=== PATIENT | female | born 1965 | race African-American/Black ===

== ENCOUNTER 2016-11-25 17:03 | Emergency (ER) ==
[2016-11-25] MEDS ORDERED: TORADOL ONE (18:01)
[2016-11-25] MEDS ORDERED: ZOFRAN ODT ONE (18:01)
[2016-11-25] MEDS ORDERED: ZOFRAN ODT PO ONE (18:04)
[2016-11-25] MEDS ORDERED: TORADOL IM ONE (18:04)
[2016-11-25 18:11] LABS: URINE SOURCE CLEAN CATCH
[2016-11-25 18:27] LABS: COLOR YELLOW; URINE CAST NONE SEEN /LPF; URINE CRYSTAL NONE SEEN /HPF; URINE EPITHELIAL CELLS >10 /HPF (<10); URINE RBC TNTC /HPF (<10); URINE WBC TNTC /HPF (<10)
[2016-11-25 18:28] LABS: BILIRUBIN URINE NEGATIVE (NEGATIVE); CLARITY VERY CLOUDY (CLEAR); GLUCOSE URINE NEGATIVE (NEGATIVE); URINE CULTURE PL NEEDED? YES
--- NOTE | 2016-11-25 18:43 | PROVIDER DOCUMENTATION ---
HPI-Female /OB/Breast - General Chief Complaint: Flank Pain Stated Complaint: UTI SX Time Seen by Provider: 11/25/16 18:36 Source: reports: patient Allergies/Adverse Reactions: Patient Allergies Allergy/AdvReac Type Severity Reaction Status Date / Time No Known Allergies Allergy Verified 05/29/15 00:18 Home Medications: Home Medication List Medication Instructions Recorded Confirmed Last Taken Type Metformin [Glucophage] 500 mg PO WBREAKFAST 10/15/14 05/29/15 05/28/15 08:00 History Oxycodone HCl/Acetaminophen 1 each PO Q4-6H PRN PRN 10/15/14 05/29/15 05/28/15 20:00 History [Endocet 10-325 mg Tablet] Oxycodone E.r. [Oxycontin] 30 mg PO TID 01/21/15 05/29/15 Unknown History Ondansetron [Zofran Odt] 8 mg PO Q8H PRN #20 tab.rapdis 01/22/15 05/29/15 Unknown Rx Ketorolac [Toradol] 10 mg PO Q6H #20 tablet 05/29/15 Unknown Rx Penicillin V Potassium [Pen Vk] 500 mg PO Q6HR #28 tablet 05/29/15 Unknown Rx Acetaminophen with Codeine 1 each PO Q6H PRN PRN #14 tablet 11/25/16 Unknown Rx [Tylenol with Codeine #3 Tablet] Ciprofloxacin HCl [Cipro] 500 mg PO BID #14 tablet 11/25/16 Unknown Rx - History of Present Illness-Female /OB Nature of Presenting Problem: 51 Y/O F presents to ED with Female . Pt c/o of on onset of urgency that began today, states whenever she uses the bathroom theres a pain that goes into her hands and feet. States that she's been nauseous, with flank pain, and a fever that started today. States she was just sneezing yesterday. States she can 't stop using the bathroom and has to go over few seconds. Does patient report she is ?: No Location of complaint: reports: generalized flank Radiation: reports: none Quality of Pain: reports: aching Severity in ED: reports: severe Onset/Duration: reports: this afternoon Timing: reports: still present Context/Activities at Onset: reports: none Vaginal Symptoms: reports: no symptoms Vaginal Bleeding Amount: None Urinary Symptoms: reports: frequency, urgency, low back pain Related Symptoms: reports: no symptoms Leakage of Fluid: none Associated Symptoms: reports: back/neck pain, fever/chills, muscle aches, nausea . denies: vomiting Similar Symptoms Previously?: No Recently seen or treated by another doctor?: No Review of Systems - Adult - REVIEW OF SYSTEMS - ADULT Constitutional: reports: fever. denies: chills Eyes: reports: no symptoms reported Ears, Nose, Mouth & Throat: reports: no symptoms reported Cardiovascular: reports: no symptoms reported Respiratory: reports: no symptoms reported Gastrointestinal: reports: abdominal pain Genitourinary: reports: frequency, flank pain, urgency Musculoskeletal: reports: no symptoms reported Integumentary: reports: no symptoms reported Neurological: reports: no symptoms reported Psychiatric: reports: no symptoms reported Endocrine: reports: no symptoms reported Hematologic/Lymphatic: reports: no symptoms reported Allergic/Immunologic: reports: no symptoms reported All Other Systems: Reviewed and Negative Past History - Adult - PAST MEDICAL HISTORY-ADULT Review of Records: reports: Old Records Reviewed, Nursing Assessment Review, Medications Reviewed, Social history reviewed & non-contributory. Major Childhood Illnesses: reports: denies history Cardiovascular: reports: hyperlipidemia Musculoskeletal: reports: chronic pain, neck/back injury Neurological: reports: headaches/migraines Endocrine/Immune: reports: Diabetes - PRIOR SURGERIES/PROCEDURES Surgical/Procedure History: reports: cholecystectomy, hysterectomy, orthopedic ( extremity), back/neck - IMMUNIZATION STATUS Childhood Immunizations: See Nurse Assessment Flu Vaccine: See Nurse Assessment - FAMILY HISTORY Family History: reviewed, not pertinent - SOCIAL HISTORY Smoking: cigarettes, less than 1 pack/day Substance Use: none/never Alcohol Use Frequency: never Living Situation: family Physical Exam-General - CONSTITUTIONAL General Appearance: alert, mild distress. negative: appears well - EYES Eyes: PERRL/EOMI, pink conjunctivae, fundi clear, no AV nicking - HEAD, EARS, NOSE, MOUTH & THROAT HENMT: normocephalic/atraumatic, moist mucous membranes, normal ENT inspection, TMs normal, pharynx normal - NECK Neck: non-tender, full range of motion, supple, normal inspection - RESPIRATORY Respiratory: chest non-tender, lungs clear, normal breath sounds - CARDIOVASCULAR Cardiovascular: normal peripheral pulses, regular rate, rhythm - GASTROINTESTINAL (ABDOMEN) Abdominal Exam: normal bowel sounds, non tender, soft - LYMPHATIC Lymphatic: no adenopathy - MUSCULOSKELETAL Back Exam: normal inspection, no CVA tenderness, no vertebral tenderness Extremity: normal range of motion, normal gait, tenderness - SKIN Integumentary: normal color, normal turgor, warm/dry - NEUROLOGIC 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 - PSYCHIATRIC Psych/Mental Status: normal mood/affect, normal thought content, normal thought process, oriented x 3 Progress - PLAN OF CARE/RESULTS Progress/Plan/Lab Results: Laboratory Tests 11/25/16 11/25/16 11/25/16 18:10 19:20 19:20 WBC 7.07 RBC 4.93 Hgb 12.3 Hct 38.3 MCV 77.7 L MCH 24.9 L MCHC 32.1 L RDW Std Deviation 13.1 Plt Count 205 MPV 10.2 Immature Gran % (Auto) 0.1 Neut % (Auto) 66.0 Lymph % (Auto) 23.5 [place] % (Auto) 9.6 H Eos % (Auto) 0.7 Baso % (Auto) 0.1 Immature Gran # (Auto) 0.01 Neut # (Auto) 4.66 Lymph # (Auto) 1.66 [place] # (Auto) 0.68 H Eos # (Auto) 0.05 Baso # (Auto) 0.01 Sodium 136 Potassium 3.7 Chloride 100 Carbon Dioxide 24 L Anion Gap 12 BUN 13 Creatinine 0.7 Estimated GFR/1.73 m2 > 60 BUN/Creatinine Ratio 19 Glucose 149 H Calculated Osmolality 275 Calcium 10.5 H Total Bilirubin 0.60 AST 16 ALT 22 Alkaline Phosphatase 109 H Total Protein 7.6 Albumin 3.8 Globulin 4.0 Albumin/Globulin Ratio 1.0 Urine Source CLEAN CATCH Urine Color YELLOW Urine Clarity VERY CLOUDY A Urine pH 5.0 Ur Specific [place] 1.020 Urine Protein 2+(100 mg/dL) A Urine Ketones TRACE Urine Blood 4+ Urine Nitrite POSITIVE A Urine Bilirubin NEGATIVE Urine Urobilinogen 1+(1 mg/dL) Urine Microscopic RBC TNTC A Urine WBC 2+ A Urine Microscopic WBC TNTC A Ur Epithelial Cells >10 A Urine Crystals NONE SEEN Urine Bacteria 1+ Urine Casts NONE SEEN Urine Yeast NONE SEEN Urine Glucose NEGATIVE Orders Category Date Time Status CBC WITH DIFF [HEME] Stat Lab 11/25/16 19:20 Completed CMP [COMPREHENSIVE METABOLIC PANEL] [CHEM] Stat Lab 11/25/16 19:20 Completed UA [URINALYSIS PL W/POSS RFLX CULT] [URINALYSIS] Stat Lab 11/25/16 18:10 Completed URINE CULTURE [RM] Routine Lab 11/25/16 18:28 Ordered Ketorolac [Toradol] Med 11/25/16 18:01 Discontinued 60 mg .ROUTE .STK-MED ONE Ketorolac [Toradol] Med 11/25/16 18:04 Discontinued 60 mg IM NOW ONE Levofloxacin [Levaquin] Med 11/25/16 18:44 Discontinued 500 mg PO NOW ONE Ondansetron Odt [Zofran Odt] Med 11/25/16 18:01 Discontinued 4 mg .ROUTE .STK-MED ONE Ondansetron Odt [Zofran Odt] Med 11/25/16 18:04 Discontinued 4 mg PO NOW ONE Phenazopyridine [Pyridium] Med 11/25/16 18:46 Discontinued 200 mg PO NOW ONE Vital Signs - 24 hr 11/25/16 17:54 Temperature 99.0 F Pulse Rate 122 H Respiratory 22 Rate Blood Pressure 145/74 Departure - Departure Time of Disposition Order: 20:02 DIAGNOSIS: UTI (urinary tract infection) Qualifiers: Urinary tract infection type: site unspecified Hematuria presence: with hematuria Qualified Code(s): N39.0 - Urinary tract infection, site not specified Disposition: HOME 01 Certified Medical Emergency: Emergent Condition: Stable Additional Instructions: ED Follow Up Instructions: You have been treated by a care provider in the Emergency Department. These instructions are being provided to you so you can have an understanding of how to care for yourself upon discharge. Upon discharge from the Emergency Department, you are responsible for making arrangements for follow-up care by a physician of your choice. Take all prescribed medications as directed. Return to the Emergency Department immediately for any new or worsening symptoms. You may call the Physician Referral phone number at [phone] to obtain a list of Physicians who are taking new patients. Prescriptions: Ciprofloxacin HCl [Cipro] 500 mg PO BID #14 tablet Acetaminophen with Codeine [Tylenol with Codeine #3 Tablet] 1 each PO Q6H PRN PRN #14 tablet PRN Reason: Pain Referrals: Eddie Cardenas [Primary Care Provider] - Attestation - Scribe Verification/Attestation Scribe:: Jayshree Louise Acting as Scribe for:: Shun Gilman Scribe documention review:: This chart was documented by a scribe and accurately reflects the service the provider performed and the decisions made by the provider.
[2016-11-25] MEDS ORDERED: LEVAQUIN PO ONE (18:44)
[2016-11-25] MEDS ORDERED: PYRIDIUM PO ONE (18:46)
[2016-11-25 18:49] LABS: BLOOD URINE 4+ (NEGATIVE); LEUKOCYTES URINE 2+ (NEGATIVE); NITRITE URINE POSITIVE (NEGATIVE); PROTEIN URINE 2+(100 mg/dL) mg/dL (NEGATIVE); UROBILINOGEN URINE 1+(1 mg/dL)
[2016-11-25 19:26] LABS: MANUAL DIFF NEEDED? NO
[2016-11-25 19:28] LABS: BASO% 0.1 % (0.0-0.8); EOS# 0.05 X1000 (0.0-0.7); EOS% 0.7 % (0.0-10.0); HEMATOCRIT 38.3 % (37.0-47.0); HEMOGLOBIN 12.3 g/dL (12.0-16.0); IMM GRAN# 0.01 X1000 (0.0-0.04); IMM GRAN% 0.1 % (0.0-0.5); LYMPH# 1.66 X1000 (1.2-3.4); LYMPH% 23.5 % (20.5-51.1); MCH 24.9 PG (27-31); MCHC 32.1 g/dL (33-37); MCV 77.7 FL (81-99); MONO# 0.68 X1000 (0.11-0.59); MONO% 9.6 % (1.7-9.3); MPV 10.2 FL (7.4-10.4); PLT 205 X1000 (130-400); RBC 4.93 XMIL (4.2-5.4)
[2016-11-25 19:49] LABS: AGAP 12; ALBUMIN 3.8 g/dL (3.5-5.0); ALKALINE PHOSPHATASE 109 U/L (32-104); BUN 13 mg/dL (8-22); CALCIUM 10.5 mg/dL (8.8-10.2); CHLORIDE 100 mmol/L (98-107); COSMO 275; GOT 16 U/L (10-30); GPT 22 U/L (10-36); POTASSIUM 3.7 mmol/L (3.5-5.1); SODIUM 136 mmol/L (136-145); TCO2 24 mmol/L (25-35); TOTAL PROTEIN 7.6 g/dL (6.3-8.3)
[2016-11-25 20:16] VITALS: BP 132/93
== END 2016-11-25 20:15 | disposition home or self-care (01) ==
LOC: P.ED 17:03
DX: N39.0 Urinary tract infection, site not specified (principal); R39.15 Urgency of urination; R35.0 Frequency of micturition; M54.5 Low back pain; R10.9 Unspecified abdominal pain; R50.9 Fever, unspecified; M79.1 Myalgia; R11.0 Nausea; E78.5 Hyperlipidemia, unspecified; G89.29 Other chronic pain; R51 Headache; E11.9 Type 2 diabetes mellitus without complications; F17.210 Nicotine dependence, cigarettes, uncomplicated; Z79.899 Other long term (current) drug therapy
CPT/HCPCS: 80053; 81001; 85025; 87077; 87088; 96372; J1885

== ENCOUNTER 2017-04-16 21:36 | Inpatient (IN) ==
[2017-04-16] MEDS ORDERED: ASPIRIN PO STA (21:50)
--- NOTE | 2017-04-16 22:06 | EKG Report ---
Test Performed on : 04/16/2017 9:51:00 PM Test Reason : CHEST PAIN Blood Pressure : / mmHG Vent. Rate : 115 BPM Atrial Rate : 115 BPM P-R Int : 150 ms QRS Dur : 088 ms QT Int : 282 ms P-R-T Axes : 036 012 029 degrees QTc Int : 390 ms Sinus tachycardia. Nonspecific T wave abnormality Abnormal ECG When compared with ECG of 10-APR-2011 16:17, Nonspecific T wave abnormality, improved in Anterior leads Unconfirmed Result
[2017-04-16 22:08] LABS: BASO% 0.1 % (0.0-0.8); EOS# 0.02 X1000 (0.0-0.7); EOS% 0.2 % (0.0-10.0); HEMATOCRIT 34.2 % (37.0-47.0); HEMOGLOBIN 11.1 g/dL (12.0-16.0); IMM GRAN# 0.02 X1000 (0.0-0.04); IMM GRAN% 0.2 % (0.0-0.5); LYMPH# 2.44 X1000 (1.2-3.4); LYMPH% 27.1 % (20.5-51.1); MANUAL DIFF NEEDED? NO; MCHC 32.5 g/dL (33-37); MONO# 0.65 X1000 (0.11-0.59); MONO% 7.2 % (1.7-9.3); MPV 10.4 FL (7.4-10.4); NEUT% 65.2 % (42.2-75.2); PLT 205 X1000 (130-400); RBC 4.62 XMIL (4.2-5.4)
[2017-04-16 22:35] LABS: AGAP 11; ALBUMIN 3.7 g/dL (3.5-5.0); ALKALINE PHOSPHATASE 189 U/L (32-104); BUN 9 mg/dL (8-22); CALCIUM 9.9 mg/dL (8.8-10.2); CHLORIDE 102 mmol/L (98-107); CK PROFILE 34 U/L (24-173); COSMO 271; GOT 15 U/L (10-30); GPT 19 U/L (10-36); MAGNESIUM 1.6 mg/dL (1.5-2.7); POTASSIUM 3.6 mmol/L (3.5-5.1); SODIUM 136 mmol/L (136-145); TCO2 23 mmol/L (25-35); TOTAL PROTEIN 6.6 g/dL (6.3-8.3)
[2017-04-16 22:59] LABS: INR 1.05 (0.86-1.15)
[2017-04-16 23:00] LABS: PTT PL 32.6 Seconds (22.6-43.9)
[2017-04-16] MEDS ORDERED: LOPRESSOR 10 MG in NS 50 ML IV ONE (23:14)
[2017-04-16] MEDS ORDERED: LOPRESSOR ONE (23:16)
[2017-04-16] MEDS ORDERED: NS 1,000 ML IV ONE (23:46)
[2017-04-16] MEDS ORDERED: DECADRON IV ONE (23:50)
[2017-04-16] MEDS ORDERED: TAPAZOLE PO ONE ×2 (23:50)
[2017-04-16] MEDS ORDERED: NORCO-7.5 PO PRN (23:51)
[2017-04-17 00:02] LABS: FREE T4 6.42 ng/dL (0.93-1.70)
--- NOTE | 2017-04-17 00:29 | ED EKG INTERP ---
This chart was entered by Erendira Bernal Scribe, acting as scribe for Shun Gilman MD. EKG Interpretation - EKG Time of EKG reading by physician:: 21:51 EKG Read and Signed by:: Shun Gilman EKG Interpretation (*Must complete 3 of following elements*): Abnormal Rate: 115 Rhythm: sinus tachycardia [place]: normal Comments: Nonspecific T wave abnormality This chart was documented by the indicated scribe, (Erendira Bernal Scribe) and accurately reflects the services I performed and decisions made by me, Shun Gilman MD, as attested by the provider's signature.
--- NOTE | 2017-04-17 00:29 | PROVIDER DOCUMENTATION ---
This chart was entered by Erendira Bernal Scribe, acting as scribe for Shun Gilman MD. HPI-General Adult - General Chief Complaint: Chest Pain Stated Complaint: CHEST PAIN Time Seen by Provider: 04/16/17 23:04 Source: patient Allergies/Adverse Reactions: Patient Allergies Allergy/AdvReac Type Severity Reaction Status Date / Time No Known Allergies Allergy Verified 05/29/15 00:18 Home Medications: Home Medication List Medication Instructions Recorded Confirmed Last Taken Type Metformin [Glucophage] 500 mg PO WBREAKFAST 10/15/14 05/29/15 04/16/17 History Oxycodone HCl/Acetaminophen 1 each PO Q4-6H PRN PRN 10/15/14 05/29/15 04/16/17 History [Endocet 10-325 mg Tablet] Oxycodone E.r. [Oxycontin] 20 mg PO BID 01/21/15 05/29/15 04/16/17 History Atenolol [Atenolol] 1 tab PO BID 04/16/17 04/16/17 04/16/17 History Linaclotide [Linzess] 1 tab PO DAILY 04/16/17 04/16/17 04/16/17 History Metformin HCl [Metformin HCl] 1 tab PO DAILY 04/16/17 04/16/17 04/16/17 History Methimazole [Methimazole] 1 tab PO 4XDAY 04/16/17 04/16/17 04/16/17 History Pantoprazole Sodium [Pantoprazole 1 tab PO DAILY 04/16/17 04/16/17 04/16/17 History Sodium] - History of Present Illness -Gen Adult Nature of Presenting Problems: 51 yo F presents to ED with cc general aches and discomfort all over. Pt has hx of thyroid disorder. Upon arrival to ED, pt was diaphoretic, tremulous, hypertensive, and tachycardic, with red, bulging eyes. Severity: reports: severe Onset/Duration: reports: gradual, other (weeks) Timing: reports: still present, getting worse Context/Activities at Onset: reports: none Associated Symptoms: reports: diaphoresis, malaise, muscle aches Similar Symptoms Previously?: No Recently seen or treated by another doctor?: Yes (recent hospitalization) Review of Systems - Adult - REVIEW OF SYSTEMS - ADULT Constitutional: reports: ch[place]. denies: chills, fever Eyes: reports: no symptoms reported. denies: blurred vision, double vision Ears, Nose, Mouth & Throat: reports: no symptoms reported. denies: ear pain, sinus problem Cardiovascular: reports: no symptoms reported. denies: chest pain, heart murmur Respiratory: reports: no symptoms reported. denies: cough, shortness of breath Gastrointestinal: reports: no symptoms reported. denies: difficulty swallowing , frequent heartburn Genitourinary: reports: no symptoms reported. denies: discharge, hematuria Musculoskeletal: reports: no symptoms reported. denies: bone pain, joint pain Integumentary: reports: no symptoms reported. denies: mole changes, skin sores/ ulcer Neurological: reports: no symptoms reported. denies: numbness, paresthesia Psychiatric: reports: no symptoms reported. denies: anxiety, depression Endocrine: reports: excessive sweating. denies: cold intolerance, heat intolerance Hematologic/Lymphatic: reports: no symptoms reported. denies: blood clots, prolonged bleeding Allergic/Immunologic: reports: no symptoms reported. denies: eczema, frequent infections All Other Systems: Reviewed and Negative Past History - Adult - PAST MEDICAL HISTORY-ADULT Review of Records: reports: Old Records Reviewed, Nursing Assessment Review, Medications Reviewed Major Childhood Illnesses: reports: denies history Cardiovascular: reports: HTN, hyperlipidemia Respiratory: reports: denies history Gastrointestinal: reports: denies history Obstetrical/Gynecological: reports: denies history Genitourinary: reports: denies history Musculoskeletal: reports: chronic pain, neck/back injury Neurological: reports: headaches/migraines Endocrine/Immune: reports: Diabetes, thyroid disorder Other Conditions: reports: denies history - PRIOR SURGERIES/PROCEDURES Surgical/Procedure History: reports: cholecystectomy, hysterectomy, orthopedic ( extremity), back/neck - IMMUNIZATION STATUS Childhood Immunizations: See Nurse Assessment Flu Vaccine: See Nurse Assessment - FAMILY HISTORY Family History: reviewed, not pertinent Physical Exam-General - PHYSICAL EXAM-ADULT Initial Vital Signs Reviewed: Yes - CONSTITUTIONAL General Appearance: moderate distress - EYES Eyes: other (red, bulging eyes) - HEAD, EARS, NOSE, MOUTH & THROAT HENMT: normocephalic/atraumatic, moist mucous membranes - NECK Neck: non-tender, full range of motion, supple - RESPIRATORY Respiratory: chest non-tender, lungs clear, normal breath sounds - CARDIOVASCULAR Cardiovascular: regular rate, rhythm, tachycardia - GASTROINTESTINAL (ABDOMEN) Abdominal Exam: normal bowel sounds, non tender, soft - LYMPHATIC Lymphatic: no adenopathy - MUSCULOSKELETAL Back Exam: normal inspection, no vertebral tenderness Extremity: non-tender, normal gait - SKIN Integumentary: diaphoresis - NEUROLOGIC Neurologic: grossly normal, no motor/sensory deficits - PSYCHIATRIC Psych/Mental Status: normal mood/affect, normal thought content, normal thought process, oriented x 3 Progress - PLAN OF CARE/RESULTS Progress/Plan/Lab Results: Vital Signs - 8 hr 04/16/17 21:40 04/16/17 23:21 04/16/17 23:32 Temperature 98.5 F 98.1 F Pulse Rate 120 H 112 H 99 H Respiratory Rate 20 34 H 30 H Blood Pressure 159/74 170/91 136/82 O2 Sat by Pulse Oximetry 100 100 100 Laboratory Results - last 24 hr 04/16/17 04/16/17 04/16/17 21:50 21:50 21:50 WBC RBC Hgb Hct MCV MCH MCHC RDW Std Deviation Plt Count MPV Immature Gran % (Auto) Neut % (Auto) Lymph % (Auto) [place] % (Auto) Eos % (Auto) Baso % (Auto) Immature Gran # (Auto) Neut # (Auto) Lymph # (Auto) [place] # (Auto) Eos # (Auto) Baso # (Auto) PT INR APTT (Factor Assay) D-Dimer Sodium 136 Potassium 3.6 Chloride 102 Carbon Dioxide 23 L Anion Gap 11 BUN 9 Creatinine 0.5 Estimated GFR/1.73 m2 > 60 BUN/Creatinine Ratio 18 Glucose 111 H Calculated Osmolality 271 Calcium 9.9 Magnesium 1.6 Total Bilirubin 0.40 AST 15 ALT 19 Alkaline Phosphatase 189 H Creatine Kinase 34 Troponin T < 0.010 [id number] Pept 657 H Total Protein 6.6 Albumin 3.7 Globulin 3.0 Albumin/Globulin Ratio 1.0 TSH Free T4 04/16/17 04/16/17 04/16/17 21:50 21:50 21:50 WBC 8.99 RBC 4.62 Hgb 11.1 L Hct 34.2 L MCV 74.0 L MCH 24.0 L MCHC 32.5 L RDW Std Deviation 13.9 Plt Count 205 MPV 10.4 Immature Gran % (Auto) 0.2 Neut % (Auto) 65.2 Lymph % (Auto) 27.1 [place] % (Auto) 7.2 Eos % (Auto) 0.2 Baso % (Auto) 0.1 Immature Gran # (Auto) 0.02 Neut # (Auto) 5.85 Lymph # (Auto) 2.44 [place] # (Auto) 0.65 H Eos # (Auto) 0.02 Baso # (Auto) 0.01 PT 14.0 INR 1.05 APTT (Factor Assay) 32.6 D-Dimer 0.43 Sodium Potassium Chloride Carbon Dioxide Anion Gap BUN Creatinine Estimated GFR/1.73 m2 BUN/Creatinine Ratio Glucose Calculated Osmolality Calcium Magnesium Total Bilirubin AST ALT Alkaline Phosphatase Creatine Kinase Troponin T [id number] Pept Total Protein Albumin Globulin Albumin/Globulin Ratio TSH 0.01 L Free T4 6.42 H Orders Category Date Time Status Admit - [facility] Routine AdmDCTranf 04/16/17 23:46 Ordered Cardiac Monitoring DIRECTED Care 04/16/17 21:50 Active Neurological Check q2h Care 04/16/17 23:46 Active Oxygen Therapy- ED Nursing DIRECTED Care 04/16/17 21:50 Active Saline Loc NOW Care 04/16/17 21:50 Active Vital Signs Order RTQ2H Care 04/16/17 23:46 Active Z-Document. for Tele Applied ORDERED Care 04/16/17 23:49 Active CHEST-2 VIEWS [RAD] Stat Exams 04/16/17 21:50 Taken CBC WITH ELECTRONIC DIFF [HEME] Stat Lab 04/16/17 21:50 Completed CK PROFILE [SP CHEM] Stat Lab 04/16/17 21:50 Completed COMPREHENSIVE METABOLIC PANEL [CHEM] Stat Lab 04/16/17 21:50 Completed D-DIMER PL [COAG] Stat Lab 04/16/17 21:50 Completed FREE T3 [HH] Stat Lab 04/16/17 21:50 Received FREE T4 Stat Lab 04/16/17 21:50 Completed MAGNESIUM [CHEM] Stat Lab 04/16/17 21:50 Completed PRO B-NATRIURETIC PEPTIDE Stat Lab 04/16/17 21:50 Com[address]IME WITH INR PL [COAG] Stat Lab 04/16/17 21:[address] [COAG] Stat Lab 04/16/17 21:50 Completed TROPONIN T Stat Lab 04/16/17 21:50 Completed TSH Stat Lab 04/16/17 21:50 Completed 0.9% Sodium Chloride Inj [Ns] 1,000 ml Med 04/16/17 23:46 Active IV 150 mls/hr Aspirin Med 04/16/17 21:50 Discontinued 325 mg PO STAT STA Dexamethasone [Decadron] Med 04/16/17 23:50 Discontinued 2 mg IV NOW ONE Hydrocodone/APAP 7.5 mg/325 mg [Dana-7.5] Med 04/16/17 23:51 Active 1 each PO Q6HR PRN Methimazole [Tapazole] Med 04/16/17 23:50 Discontinued 30 mg PO NOW ONE Methimazole [Tapazole] Med 04/16/17 23:50 Discontinued 30 mg PO NOW ONE Metoprolol [Lopressor] Med 04/16/17 23:16 Discontinued 10 mg .ROUTE .STK-MED ONE Metoprolol [Lopressor] 10 mg Med 04/16/17 23:14 Discontinued 0.9% Sodium Chloride Inj [Ns] 50 ml IV NOW Telemetry [OM.EQ] Routine Oth 04/16/17 23:46 Active EKG [EKG] Stat Ther 04/16/17 21:50 Draft Transfer/Admit Order [TRANSFER] Routine Transfer 04/16/17 23:46 Ordered Result Diagrams: 04/16/17 21:50 04/16/17 21:50 Departure - Departure Date of Disposition Decision: 04/17/17 Time of Disposition Decision: 00:28 DIAGNOSIS: Thyroid storm Qualifiers: Thyrotoxicosis type: with diffuse goiter Qualified Code(s): E05.01 - Thyrotoxicosis with diffuse goiter with thyrotoxic crisis or storm Disposition: ADMITTED INPATIENT 09 Certified Medical Emergency: Emergent Condition: Stable - Critical Care Note This patient required my direct & personal management of CC.: Yes Total Time (mins): 30 Critical Care Statement: This patient required my direct personal management to treat or rule out processes, the absence of which, could potentiallly result in sudden, clinically significant life or limb threatening deterioration. This chart was documented by the indicated scribe, (Erendira Bernal Scribe) and accurately reflects the services I performed and decisions made by me, Shun Gilman MD, as attested by the provider's signature.
--- NOTE | 2017-04-17 08:26 | Diag Imaging Result Doc PS360 ---
EXAM: CHEST-2 VIEWS HISTORY: CP TECHNIQUE: PA and Lateral chest x-ray COMPARISON: 04/10/2011 FINDINGS: There is cardiomegaly. There is linear subsegmental atelectasis or scarring left mid to lower lung zone. No acute infiltrates or effusions are appreciated. No pneumothorax is identified. IMPRESSION: No acute cardiopulmonary abnormality is identified. Cardiomegaly. Electronically signed by Winnie Carmona 04/17/2017 8:24 AM
[2017-04-17] MEDS: NORCO-7.5 PO PRN ×2 (09:54→16:34)
[2017-04-17] MEDS ORDERED: TAPAZOLE PO ONE (12:24)
[2017-04-17] MEDS: LOPRESSOR PO SCH ×2 (14:20→20:33)
--- NOTE | 2017-04-17 15:37 | Diag Imaging Result Doc PS360 ---
EXAM: US SOFT TISSUE HEAD NECK HISTORY: graves TECHNIQUE: Thyroid ultrasound COMMENT: The right lobe is 6.6 x 3.4 x 2.6 cm the left is 7.8 x 2.9 x 2.9 cm. The thyroid gland is markedly heterogeneous in echotexture. There are no discrete masses. IMPRESSION: Multinodular goiter. 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 The appearance is more heterogeneous than one would expect for Graves' disease. Electronically signed by Benedict Pacheco 04/17/2017 3:35 PM
[2017-04-17] MEDS: SOLU-MEDROL IV SCH (16:36)
[2017-04-17] MEDS ORDERED: TYLENOL PO PRN (17:38)
[2017-04-17] MEDS ORDERED: ZOFRAN IV PRN (17:38)
[2017-04-17] MEDS: TAPAZOLE PO SCH (18:02)
[2017-04-17] MEDS ORDERED: PERCOCET-10 PO PRN (18:10)
--- NOTE | 2017-04-17 18:51 | HISTORY AND PHYSICAL ---
CHIEF COMPLAINT: Chest pain. Tremors. HISTORY OF PRESENT ILLNESS: This is a 51-year-old female with a history of recently diagnosed hyperthyroidism. She is on methimazole at home. She came in with diaphoresis, tremulousness, hypertensive. She has exophthalmus. Her initial heart rate was reportedly in the 200s SVT. She was given several doses of IV Lopressor and admitted to the unit. She is in thyroid storm, thyrotoxicosis acute. She reports being on the methimazole for the last month and has been compliant. Unclear exactly what her diagnosis is at this point, although presumably it is Graves. PAST MEDICAL HISTORY: Otherwise I believe hypertension. PAST SURGICAL HISTORY: 1. Cholecystectomy. 2. Hysterectomy. 3. Back and neck surgery. SOCIAL HISTORY: No tobacco or ethanol. ALLERGIES: Reports no known drug allergies. MEDICATIONS: She is currently on atenolol 50 b.i.d., Linzess 145 daily, metformin 500 daily, methimazole 5 t.i.d., OxyContin 20 b.i.d., [place] and pantoprazole. REVIEW OF SYSTEMS: Otherwise negative times 10 point review of systems. PHYSICAL EXAMINATION: VITAL SIGNS: Blood pressure currently 146/69, heart rate 94, respiratory rate 24, temperature 97.4 degrees, 99% on 2 L. CARDIOVASCULAR: Regular rate and rhythm. PULMONARY: Bilateral breath sounds. Clear to auscultation. GASTROINTESTINAL: Soft, nontender, nondistended. Bowel sounds are positive. LABORATORY DATA: White count 8, hemoglobin and hematocrit 11 and 34, MCV 205, coags normal, D- dimer negative, CMP was normal, troponin was normal, TSH 0.01, free T4 of 6.42. ASSESSMENT: This is a 51-year-old female with thyrotoxicosis presumably secondary to Graves. 1. Graves' disease, thyrotoxicosis, thyroid storm: We will continue beta-blockers. I am going to increase her Tapazole. She has been on 30-45 a day. I am going to increase it to 60 a day. We may be able to cut that down. Just right now since she is acutely exacerbated and I am trying to decrease that. We will discharge her on Lopressor, propranolol. I am going to go ahead and get a neck ultrasound. It is a different presentation. It seems like it would be unusual for her to be thyrotoxic on therapy. We will analyze for other causes including Mihai's thyroiditis and follow. If she is not improved, she will just need Endocrinology referral. She has seen doctors in [place] but I am not sure if she saw her primary and continuity reader. We will also add steroids due to the amount of thyrotoxicosis that is noted. 2. Hypertension: Continue to monitor closely. 3. Reported diabetes: We will check A1c, monitor blood sugars especially on steroids, and follow closely. DISPOSITION: Likely to the floor in the next 24 hours. Home when stabilized. This is a service admission. cc: Jerry Chacon MD
[2017-04-17] MEDS: LINZESS PO SCH (19:07)
[2017-04-17] MEDS: OXYCONTIN PO SCH (20:33)
[2017-04-17] MEDS: HUMULIN R DOSE (PARKWAY) SUBQ SCH (20:34)
[2017-04-18] MEDS: SOLU-MEDROL IV SCH ×3 (01:00→21:38)
[2017-04-18] MEDS: PERCOCET-10 PO PRN ×3 (01:00→18:43)
[2017-04-18] MEDS: LOPRESSOR PO SCH ×4 (01:34→21:38)
[2017-04-18] MEDS: NORCO-7.5 PO PRN (04:50)
[2017-04-18 05:23] LABS: HEMATOCRIT 34.6 % (37.0-47.0); MCH 23.7 PG (27-31); MCHC 31.8 g/dL (33-37); MCV 74.6 FL (81-99); MPV 10.9 FL (7.4-10.4); RBC 4.64 XMIL (4.2-5.4)
[2017-04-18 05:50] LABS: AGAP 11; BUN 17 mg/dL (8-22); CALCIUM 10.3 mg/dL (8.8-10.2); CHLORIDE 106 mmol/L (98-107); COSMO 283; MAGNESIUM 1.9 mg/dL (1.5-2.7); POTASSIUM 4.2 mmol/L (3.5-5.1); SODIUM 139 mmol/L (136-145); TCO2 22 mmol/L (25-35)
[2017-04-18] MEDS: HUMULIN R DOSE (PARKWAY) SUBQ SCH ×2 (06:29→10:29)
[2017-04-18] MEDS: GLUCOPHAGE PO SCH ×2 (07:53→08:07)
[2017-04-18] MEDS: PROTONIX PO SCH ×2 (07:54→08:08)
[2017-04-18] MEDS: TAPAZOLE PO SCH ×4 (07:54→16:36)
[2017-04-18] MEDS: OXYCONTIN PO SCH ×2 (08:00→21:38)
[2017-04-18] MEDS ORDERED: TAPAZOLE PO SCH (09:00)
[2017-04-18] MEDS: LINZESS PO SCH (10:10)
[2017-04-18] MEDS: NICODERM PATCH TD SCH (13:08)
--- NOTE | 2017-04-18 13:18 | PROGRESS NOTE ---
DATE: 04/18/2017 SUBJECTIVE: The patient notes that she is feeling better. She is still jittery and nervous. She is still having some difficulty sleeping, but denies any chest pains or palpitations. Denies any fevers or chills currently. OBJECTIVE: Vital Signs: Reviewed. Temperature 97 degrees, pulse 88, respiratory rate 27, blood pressure 159/84, and saturation 99% on room air. General: Patient is awake and alert. She is in no respiratory distress. HEENT: Normocephalic. She is noted to have bulging of the right eye, but the left seems completely back to normal. Neck: Supple. She is noted to have a large thyroid gland. Cardiovascular: Regular rate and rhythm. No appreciable murmurs. Chest: Clear. Nonlabored. Abdomen: Soft. Extremities: Moves all extremities. Neurologic: No focal changes. LABORATORIES: CBC and CMP are essentially normal with the exception of calcium at 10.3. ASSESSMENT: 1. Graves disease with thyroid storm. Certainly appears to be improving. Will continue her on beta blockers, continue her on Tapazole. Recheck in the a.m. We will decrease her steroids. 2. Hypertension. Stable. 3. Type 2 diabetes. Stable currently, but we will also decrease her steroids rapidly in an attempt to keep her blood sugar stable. Will drop down to 40 q.12 today from 60 q.8, and will follow. PLAN: We will transition her to the floor today. Hopefully, home in the next 1-2 days. cc: Pancho Ramires MD
--- NOTE | 2017-04-18 14:40 | Diag Imaging Result Doc PS360 ---
EXAM: MRI BRAIN W W/O CONTRAST INDICATION: ams COMPARISON: None. FINDINGS: There is no evidence of acute infarct. The deep white matter signal is unremarkable. There is no discrete intracranial mass, mass effect, or intracranial hemorrhage. There is no evidence of abnormal intracranial enhancement. There are couple small mucous retention cysts involving the maxillary sinuses bilaterally. The surrounding soft tissues and bony structures are essentially unremarkable, otherwise. IMPRESSION: No evidence of acute intracranial pathology and essentially unremarkable, otherwise. Electronically signed by Jose Esparza 04/18/2017 2:38 PM
[2017-04-18] MEDS: HUMULIN R (PARKWAY) SUBQ SCH ×2 (16:36→21:39)
[2017-04-19] MEDS: LOPRESSOR PO SCH ×2 (02:52→08:25)
[2017-04-19 06:15] LABS: HEMATOCRIT 34.2 % (37.0-47.0); HEMOGLOBIN 10.7 g/dL (12.0-16.0); MCH 23.4 PG (27-31); MCHC 31.3 g/dL (33-37); MCV 74.7 FL (81-99); MPV 10.5 FL (7.4-10.4); RBC 4.58 XMIL (4.2-5.4)
[2017-04-19] MEDS: HUMULIN R (PARKWAY) SUBQ SCH (06:23)
[2017-04-19 06:29] LABS: AGAP 9; ALBUMIN 3.3 g/dL (3.5-5.0); ALKALINE PHOSPHATASE 174 U/L (32-104); BUN 16 mg/dL (8-22); CALCIUM 9.9 mg/dL (8.8-10.2); CHLORIDE 106 mmol/L (98-107); COSMO 283; GOT 79 U/L (10-30); GPT 87 U/L (10-36); MAGNESIUM 2.1 mg/dL (1.5-2.7); POTASSIUM 4.5 mmol/L (3.5-5.1); SODIUM 138 mmol/L (136-145); TCO2 23 mmol/L (25-35); TOTAL PROTEIN 6.7 g/dL (6.3-8.3)
[2017-04-19 06:41] LABS: FREE T4 5.31 ng/dL (0.93-1.70)
[2017-04-19] MEDS ORDERED: LINZESS PO SCH (07:00)
[2017-04-19 07:13] VITALS: BP 162/88
[2017-04-19] MEDS ORDERED: GLUCOPHAGE PO SCH (08:00)
[2017-04-19] MEDS: TAPAZOLE PO SCH (08:24)
[2017-04-19] MEDS: OXYCONTIN PO SCH (08:24)
[2017-04-19] MEDS: SOLU-MEDROL IV SCH (08:25)
[2017-04-19] MEDS: NICODERM PATCH TD SCH (08:25)
[2017-04-19] MEDS: PROTONIX PO SCH (08:25)
--- NOTE | 2017-04-19 16:58 | DISCHARGE SUMMARY ---
ADMISSION DATE: 04/17/2017 DISCHARGE DATE: 04/19/2017 ADMISSION DIAGNOSES: 1. Graves disease. 2. Thyrotoxicosis and thyroid storm. 3. Hypertension. 4. Diabetes type 2. DISCHARGE DIAGNOSES: 1. Graves disease. 2. Thyrotoxicosis and thyroid storm. 3. Hypertension. 4. Diabetes type 2. SUMMARY OF FINDINGS: This is a 51-year-old female with a history of recently diagnosed hyperthyroidism. Is on methimazole at home. Presented to the ER with diaphoresis, tremors and hypertension. Is noted to have exophthalmos. Her initial heart rate and in the ER was reportedly in the 200s with SVT. She was given several doses of IV Lopressor and admitted to the ICU. Was noted to be in thyroid storm with thyrotoxicosis acute. States that she had been on her methimazole for the last month and had been compliant. 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 The appearance was more heterogeneous than one would expect for Graves disease. We did a brain MRI on 04/18/2017 that showed no evidence of acute intracranial pathology and essentially unremarkable otherwise. She was initially admitted to ICU. Transferred out to the floor yesterday on 04/18/2017. We increased her methimazole to 20 mg p.o. b.i.d. We placed her on Solu-Medrol 40 mg IV q.12 and Lopressor 25 q.6. She is feeling better, is stable and it is felt that she can safely be discharged home today. She will be discharged on the following medications. She was given a prescription for a Medrol Dosepak, take as directed and a prescription for her methimazole 20 mg p.o. t.i.d. #90 with 2 refills. She will also continue her Linzess 145 mcg tablet p.o. daily, metformin 500 mg p.o. daily. OxyContin 20 mg p.o. b.i.d., Endocet 10 1 p.o. q 4-6 hours p.r.n. Protonix 40 mg p.o. daily. Atenolol 50 mg 1 p.o. b.i.d. FOLLOWUP: She will need to follow up with her primary care physician in the next 1-2 weeks and call his office for an appointment time. 35 minute discharge. Dictated by DEVON Song for Pancho Ramires MD cc: DEVON Song MD
== END 2017-04-19 09:57 | disposition home or self-care (01) ==
LOC: P.ED 21:36 → P.ICU 04-17 00:18 → P.MEDSURG 04-18 12:19
PROVIDERS: ATTEND Internal Medicine